=== PATIENT | male | born 1950 | race Caucasian/White ===

== ENCOUNTER → 2017-09-01 | Outpatient (CLI) | payer OTHER | LOC: M.RAD 12:38 | DX: S69.91XA Unspecified injury of right wrist, hand and finger(s), initial encounter (principal); M18.31 Unilateral post-traumatic osteoarthritis of first carpometacarpal joint, right hand; W19.XXXA Unspecified fall, initial encounter; Y93.89 Activity, other specified; Y92.89 Other specified places as the place of occurrence of the external cause; Y99.8 Other external cause status ==